=== PATIENT | male | born 1940 | race Caucasian/White ===

== ENCOUNTER → 2018-01-01 | Outpatient (CLI) | payer OTHER ==
--- NOTE | 2018-01-01 15:13 | MR ---
EXAMINATION TYPE: MR hip RT wo con DATE OF EXAM: 01/01/2018 COMPARISON: None HISTORY: Pain in right hip Standard multiplanar, multisequence MRI departmental protocol Multiplanar, multisequence images of the pelvis focus on right hip were acquired. FINDINGS: Bone marrow signal intensity throughout the visualized pelvis including bilateral hips is felt within normal limits. No suspicious edema is seen. Femoral head shapes are maintained bilaterally. No serpi ginous low T1 signal is seen to suggest avascular necrosis. There is moderate axial joint space loss in both hips. There is mild to moderate head neck junction s purring in both hips, right greater than left. There are symmetric small hip joint effusions noted. Mild asymmetric edema level of right greater trochanter is seen coronal image 8. No suspicious edema is noted at level of lesser trochanters bilaterally. There is no suspicious bowel or fat-containing inguinal hernia. There are benign subcentimeter bilate ral groin lymph nodes. No suspicious groin adenopathy is present. Labrum appears grossly intact given limitation of nonarthrogram study. Prostate gland is normal in size. Bladder is felt within normal limits. There is prominent diverticul osis in the sigmoid colon axial image 16. No concerning pelvic fluid collection is seen. 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 Mild right-sided greate r trochanteric bursitis noted.
== END | disposition home or self-care (01) ==
LOC: RADMRIMAIN 11:57
DX: M16.0 Bilateral primary osteoarthritis of hip (principal); M70.61 Trochanteric bursitis, right hip

== ENCOUNTER 2018-08-10 13:43 | Emergency (ER) | payer OTHER ==
[2018-08-10] MEDS ORDERED: INDOMETHACIN 25 MG CAP PO STA (14:56)
--- NOTE | 2018-08-10 15:16 | ED ---
General Adult HPI - General Chief complaint: Skin/Abscess/Foreign Body Stated complaint: toe swelling/redness Time Seen by Provider: 08/10/18 14:25 Source: patient Mode of arrival: ambulatory Limitations: no limitations - History of Present Illness Initial comments: Patient is an 78-year-old male presenting to emergency Department with pain to his right second toe. Patient states the toe became very erythematous and swollen for a course of 2 days. Patient states that he does not have a history of gout but does have family history of it. Patient reports taking hydrochlorothiazide, poor water intake and high meat diet. Patient reports he went to the [place] early this morning when the nurse told him to come to the emergency department. Patient reports that toe is very sensitive to palpation but does not limit his range of motion. Patient denies taking any medication to alleviate the pain. Patient denies any fever, nausea, vomiting, diarrhea, headache, chest pain, chest tightness. Patient denies any discharge from the inflamed toe. - Related Data Previous Rx's Medication Instructions Recorded Naproxen [Naprosyn] 500 mg PO Q12HR PRN #14 tab 08/10/18 Allergies Allergy/AdvReac Type Severity Reaction Status Date / Time No Known Allergies Allergy Verified 08/10/18 14:18 Review of Systems ROS Statement: Those systems with pertinent positive or pertinent negative responses have been documented in the HPI. ROS Other: All systems not noted in ROS Statement are negative. Past Medical History Past Medical History: GERD/Reflux, Hypertension Additional Past Medical History / Comment(s): chronic neck, shoulder and hip pain History of Any Multi-Drug Resistant Organisms: None Reported Past Surgical History: Hernia Repair, Orthopedic Surgery, Tonsillectomy Past Psychological History: No Psychological Hx Reported Smoking Status: Former smoker Past Alcohol Use History: None Reported Past Drug Use History: None Reported General Exam Limitations: no limitations General appearance: alert, in no apparent distress Head exam: Present: atraumatic, normocephalic, normal inspection Eye exam: Present: normal appearance Neck exam: Present: normal inspection Respiratory exam: Present: normal lung sounds bilaterally Cardiovascular Exam: Present: regular rate, normal rhythm, normal heart sounds Right Upper Leg exam: Present: normal inspection, full ROM Knee exam: Present: normal inspection, full ROM Lower Leg exam: Present: normal inspection, full ROM Ankle exam: Present: normal inspection, full ROM Foot/Toe exam: Present: full ROM, tenderness (Second digit, DIP), swelling (Mild), erythema. Absent: abrasion, laceration, ecchymosis, deformity, crepitu s, puncture wound, tenderness at base of 5th metatarsal, subungual hematoma Course Vital Signs 08/10/18 14:14 Temperature 97.3 F L Pulse Rate 76 Respiratory 18 Rate Blood Pressure 171/79 O2 Sat by Pulse 96 Oximetry Medical Decision Making - Medical Decision Making Patient 78-year-old male presenting to emergency Department with right second toe pain. Based on the physical exam and history, patient is at high risk for gout. I have high suspicion for gout and will treat him with indomethacin. Patient advised to follow-up with primary care. Patient advised to return to emergency department is symptoms worsen. Return parameters for suspected infection discussed with patient. Patient advised to take naproxen for the next 3 days to control flare. Case discussed with physician. Disposition Clinical Impression: Toe pain, right Disposition: HOME SELF-CARE Condition: Stable Instructions (If sedation given, give patient instructions): Gout (ED) Additional Instructions: Please take prescribed medication as directed. Please follow up primary care. Please return to emergency department symptoms worsen. Is patient prescribed a controlled substance at d/c from ED?: No Referrals: [facility],Clinic [Primary Care Provider] - 1-2 days Time of Disposition: 15:33
[2018-08-10 15:56] VITALS: BP 146/100; PULSE 62; RESP 16
[2018-08-10 16:00] VITALS: TEMP 98.1
== END 2018-08-10 15:56 | disposition home or self-care (01) ==
LOC: EC 13:43
DX: M79.674 Pain in right toe(s) (principal); Z87.891 Personal history of nicotine dependence
CPT/HCPCS: 99283

== ENCOUNTER 2019-10-21 20:28 | Emergency (ER) | payer OTHER, MEDICARE ==
[2019-10-21 20:36] VITALS: BP 185/86; PULSE 60; RESP 18; TEMP 97.7
[2019-10-21] MEDS ORDERED: DIPH,PERTUS(ACELL)TETVAC-LF 0.5 ML VIAL IM ONE (20:54)
[2019-10-21] MEDS ORDERED: TOPICAL SKIN ADHESIVE 1 EACH AMP TOPICAL ONE (20:55)
--- NOTE | 2019-10-21 21:14 | ED ---
Upper Extremity HPI - General Chief Complaint: Extremity Injury, Upper Stated Complaint: R Arm Injury Time Seen by Provider: 10/21/19 20:39 Source: patient, RN notes reviewed, old records reviewed Mode of arrival: ambulatory Limitations: no limitations - History of Present Illness Initial Comments: 79-year-old male presents returns today with skin tear over the right arm. Patient reports that he cut it on a fence folds. Patient states that the bleeding is well-controlled. He is worried about needing a tetanus vaccine. - Related Data Home Medications Medication Instructions Recorded Confirmed Atorvastatin [Lipitor] 80 mg PO HS 08/10/18 08/10/18 Carboxymethylcellulos/Glycerin 1 drop BOTH EYES DAILY PRN 08/10/18 08/10/18 [Refresh Repair 0.5-0.9% Drop] Fluticasone Nasal [employer] [Flonase 1 spray EA NOSTRIL BID PRN 08/10/18 08/10/18 Nasal [employer]] HYDROcodone/APAP 7.5-325MG [[place] 1 tab PO BID 08/10/18 08/10/18 7.5-325] Ketoconazole [Ketoconazole 2%] 1 applic TOPICAL BID 08/10/18 08/10/18 Loratadine [Claritin] 10 mg PO DAILY 08/10/18 08/10/18 Metoprolol Tartrate [Lopressor] 25 mg PO BID 08/10/18 08/10/18 Omeprazole 20 mg PO DAILY 08/10/18 08/10/18 Sildenafil Citrate 25 mg PO DIRECTED 08/10/18 08/10/18 Triamcinolone 0.1% Cream [Kenalog 1 applic TOPICAL BID PRN 08/10/18 08/10/18 0.1% Cream] Vit C/E/Zn/Coppr/Lutein/Zeaxan 1 cap PO BID 08/10/18 08/10/18 [Preservision Areds 2 Softgel] amLODIPine [Norvasc] 5 mg PO DAILY 08/10/18 08/10/18 hydroCHLOROthiazide [Hydrodiuril] 50 mg PO DAILY 08/10/18 08/10/18 Allergies Allergy/AdvReac Type Severity Reaction Status Date / Time gabapentin Allergy Unknown Verified 10/21/19 20:36 Review of Systems ROS Statement: Those systems with pertinent positive or pertinent negative responses have been documented in the HPI. ROS Other: All systems not noted in ROS Statement are negative. Past Medical History Past Medical History: GERD/Reflux, Hypertension Additional Past Medical History / Comment(s): chronic neck, shoulder and hip pain History of Any Multi-Drug Resistant Organisms: None Reported Past Surgical History: Hernia Repair, Orthopedic Surgery, Tonsillectomy Past Psychological History: No Psychological Hx Reported Smoking Status: Never smoker Past Alcohol Use History: None Reported Past Drug Use History: None Reported General Exam - General Exam Comments Initial Comments: 79-year-old male. Alert and oriented 3. No distress. Limitations: no limitations General appearance: alert, in no apparent distress Head exam: Present: atraumatic, normocephalic, normal inspection Eye exam: Present: normal appearance, PERRL, EOMI. Absent: scleral icterus, conjunctival injection, periorbital swelling ENT exam: Present: normal exam, mucous membranes moist Neck exam: Present: normal inspection. Absent: tenderness, meningismus, lymphadenopathy Respiratory exam: Present: normal lung sounds bilaterally. Absent: respiratory distress, wheezes, rales, rhonchi, stridor Cardiovascular Exam: Present: regular rate, normal rhythm, normal heart sounds. Absent: systolic murmur, diastolic murmur, rubs, gallop, clicks GI/Abdominal exam: Present: soft, normal bowel sounds. Absent: distended, tenderness, guarding, rebound, rigid Extremities exam: Present: normal inspection, full ROM, normal capillary refill, other (Patient has a 3 cm skin tear over the right proximal radius. Full range of motion of the elbow and forearm.). Absent: tenderness, pedal edema, joint swelling, calf tenderness Course Vital Signs 10/21/19 20:32 Temperature 97.7 F Pulse Rate 60 Respiratory 18 Rate Blood Pressure 185/86 O2 Sat by Pulse 97 Oximetry Medical Decision Making - Medical Decision Making 79 year old male with skin tear on R elbow. Given dermabond and wound was close d. Discussed monitoring for infection and was given updated TDAP. Disposition Clinical Impression: Skin tear Disposition: HOME SELF-CARE Condition: Good Instructions (If sedation given, give patient instructions): Skin Adhesive Care (ED) Additional Instructions: Allow the skin glue to follow up on its own. Return to the ED if any alarming signs or symptoms occur. Is patient prescribed a controlled substance at d/c from ED?: No Referrals: [facility],Clinic [Primary Care Provider] - 1-2 days Time of Disposition: 21:14
== END 2019-10-21 21:21 | disposition home or self-care (01) ==
LOC: EC 20:28
DX: S51.011A Laceration without foreign body of right elbow, initial encounter (principal); Z23 Encounter for immunization; K21.9 Gastro-esophageal reflux disease without esophagitis; I10 Essential (primary) hypertension; Z79.899 Other long term (current) drug therapy; Z88.6 Allergy status to analgesic agent; W26.8XXA Contact with other sharp object(s), not elsewhere classified, initial encounter
CPT/HCPCS: 12002; 90471; 90715; 99283

== ENCOUNTER → 2021-06-13 | Outpatient (CLI) | payer OTHER ==
--- NOTE | 2021-06-14 05:29 | MR ---
EXAMINATION TYPE: MR lumbar spine wo con DATE OF EXAM: 06/13/2021 COMPARISON: None HISTORY: NO prior, low back pain and left side pain, chronic no injury Multiplanar multiecho imaging of the lumbar spine without contrast. The vertebrae show some disc space narrowing at L3-4 and L4-5. There is mild anterior subluxation at L4-4 and L4-5 of a few millimeters. No spondylolysis. There is mild posterior disc bulging at L3-4 an d L4-5. There is lateral recess stenosis and mild spinal stenosis at L2-3 and L3-4 and L4-5. No compr ession fracture. Lumbar nerve roots appear normal. No significant neural foraminal narrowing. There i s no lumbar paraspinal mass. No evidence of focal bone destruction. 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 Mild multilevel lateral recess stenosis an d mild spinal stenosis. No fracture seen.
== END | disposition home or self-care (01) ==
LOC: RADMRIMAIN 11:26
DX: M47.816 Spondylosis without myelopathy or radiculopathy, lumbar region (principal); M43.16 Spondylolisthesis, lumbar region; M48.061 Spinal stenosis, lumbar region without neurogenic claudication; I73.9 Peripheral vascular disease, unspecified
CPT/HCPCS: 72148; 93923